=== PATIENT | male | born 1965 | race Caucasian/White ===

== ENCOUNTER 2021-02-09 20:14 | Inpatient (IN) | payer MEDICARE, MEDICAID ==
[~2021-02-09] VITALS: Ht 160 cm; Wt 41.9 kg
[2021-02-10] MEDS ORDERED: AMLODIPINE BESYL5 MG PO (00:34)
[2021-02-10] MEDS ORDERED: BACLOFEN10 MG PO (00:35)
[2021-02-10] MEDS ORDERED: CELEXA 20MG TAB20 MG PO (00:35)
[2021-02-10] MEDS ORDERED: PROTONIX 40 MG40 M1 PO (00:36)
[2021-02-10] MEDS ORDERED: MONTELUKAST SOD10 MG PO (00:36)
[2021-02-10] MEDS ORDERED: QUETIAPINE FUMA25 MG PO (00:37)
[2021-02-10] MEDS ORDERED: FLOMAX0.4 MG PO (00:37)
[2021-02-10] MEDS ORDERED: SYMBICORT 16010.2 GM INH (00:38)
[2021-02-10 03:48] LABS: RED BLOOD COUNT 3.97 M/UL (4.20-5.50); WHITE BLOOD COUNT 21.8 K/UL (4.5-11.0)
[2021-02-10 04:31] LABS: BUN/CREATININE RATIO 18 (0-10)
[2021-02-11 03:10] LABS: HEMOGLOBIN 8.9 gm/dl (14.0-17.5); RED BLOOD COUNT 3.98 M/UL (4.20-5.50); WHITE BLOOD COUNT 17.9 K/UL (4.5-11.0)
[2021-02-11 03:29] LABS: BUN/CREATININE RATIO 16 (0-10)
[2021-02-12 04:48] LABS: HEMOGLOBIN 8.3 gm/dl (14.0-17.5); RED BLOOD COUNT 3.63 M/UL (4.20-5.50); WHITE BLOOD COUNT 18.1 K/UL (4.5-11.0)
[2021-02-12 05:08] LABS: BUN/CREATININE RATIO 15 (0-10)
[2021-02-14 05:34] LABS: BUN/CREATININE RATIO 15 (0-10)
[2021-02-14] MEDS ORDERED: IPRAT-ALBUT 0.5-3 ML NEB (12:07)
[2021-02-14] MEDS ORDERED: SUDAFED 30 MG T30 MG PO (12:07)
== END 2021-02-14 17:14 | disposition short-term general hospital (02) | DRG 559 ==
LOC: MED SURG 4 20:15
PROVIDERS: Internal Medicine; ADMIT Internal Medicine Infectious Disease
DX: T84.030A Mechanical loosening of internal right hip prosthetic joint, initial encounter (principal); A41.9 Sepsis, unspecified organism; M86.8X8 Other osteomyelitis, other site; E87.1 Hypo-osmolality and hyponatremia; L03.115 Cellulitis of right lower limb; G82.20 Paraplegia, unspecified; R64 Cachexia; Z68.1 Body mass index [BMI] 19.9 or less, adult; I87.8 Other specified disorders of veins; D64.9 Anemia, unspecified; J44.9 Chronic obstructive pulmonary disease, unspecified; I10 Essential (primary) hypertension; Y83.8 Other surgical procedures as the cause of abnormal reaction of the patient, or of later complication, without mention of misadventure at the time of the procedure; L89.312 Pressure ulcer of right buttock, stage 2; Z20.822 Contact with and (suspected) exposure to COVID-19; Z98.1 Arthrodesis status; Z91.041 Radiographic dye allergy status; Z88.0 Allergy status to penicillin; Z91.09 Other allergy status, other than to drugs and biological substances; Z82.49 Family history of ischemic heart disease and other diseases of the circulatory system; Z87.891 Personal history of nicotine dependence; Z99.3 Dependence on wheelchair
CPT/HCPCS: 36415; 72170; 80048; 80053; 80202; 83735; 85025; 85652; 86140; 93970; 94640; 94760; J0692; J1644; J3370; J7070; U0002